=== PATIENT | female | born 1950 | race Caucasian/White ===

== ENCOUNTER → 2017-01-05 | Outpatient (CLI) | payer MEDICARE ==
--- NOTE | 2017-01-05 13:56 | MM ---
Reason for exam: follow-up at short interval from prior study. Last mammogram was performed 8 months ago. History: Patient is postmenopausal and has history of breast cancer at age 65. Family history of breast cancer in sister at age 60. Malignant MG pre op needle loc LT of the left breast, June 17, 2016. Malignant US biopsy breast VAD LT of the left breast, May 08, 2016. US discontinued breast core LT of the left breast, April 30, 2016. Physical Findings: Nurse did not find any significant physical abnormalities on exam. MG 3D Diag Mammo W/Cad LT CC and MLO view(s) were taken of the left breast. Prior study comparison: May 08, 2016, left breast MG diagnostic mammo LT wo CAD. April 01, 2016, left breast MG work up mamm w CAD LT. The breast tissue is heterogeneously dense. This may lower the sensitivity of mammography. Finding: Architectural distortion in the left breast consistent with previous surgery. Post radiation change, skin thickening. No significant changes in finding since May 08, 2016 and April 01, 2016. These results were verbally communicated with the patient and result sheet given to the patient on 01/05/17. ASSESSMENT: Benign, BI-RAD 2 RECOMMENDATION: Follow-up diagnostic mammogram of both breasts in 3 months.
== END | disposition home or self-care (01) ==
LOC: RADMAMWWP 12:51
PROVIDERS: ATTEND Surgery
DX: Z08 Encounter for follow-up examination after completed treatment for malignant neoplasm (principal); Z85.3 Personal history of malignant neoplasm of breast
CPT/HCPCS: G0206; G0279

== ENCOUNTER → 2018-03-17 | Outpatient (CLI) | payer MEDICARE ==
--- NOTE | 2018-03-17 14:16 | MM ---
Reason for exam: additional evaluation requested from prior study. Last mammogram was performed 1 year and 2 months ago. History: Patient is postmenopausal, has history of breast cancer at age 65, and history of other cancer. Family history of breast cancer in sister at age 60. Malignant MG pre op needle loc LT of the left breast, June 17, 2016. Malignant US biopsy breast VAD LT of the left breast, May 08, 2016. US discontinued breast core LT of the left breast, April 30, 2016. Physical Findings: Nurse did not find any significant physical abnormalities on exam. MG 3D Diag Mammo W/Cad ELVIRA Bilateral CC and MLO view(s) were taken. Prior study comparison: January 05, 2017, left breast MG 3d diag mammo w/cad LT. May 08, 2016, left breast MG diagnostic mammo LT wo CAD. The breast tissue is heterogeneously dense. This may lower the sensitivity of mammography. No suspicious abnormality. Post surgical change on the left breast. These results were verbally communicated with the patient and result sheet given to the patient on 03/17/18. ASSESSMENT: Benign, BI-RAD 2 RECOMMENDATION: Follow-up diagnostic mammogram of both breasts in 1 year.
== END | disposition home or self-care (01) ==
LOC: RADMAMWWP 13:07
PROVIDERS: ATTEND Internal Medicine Hematology & Oncology
DX: Z08 Encounter for follow-up examination after completed treatment for malignant neoplasm (principal); Z85.3 Personal history of malignant neoplasm of breast
CPT/HCPCS: 77066; G0279

== ENCOUNTER → 2018-04-08 | Outpatient (CLI) | payer MEDICARE ==
--- NOTE | 2018-04-15 15:17 | HM ---
HOLTER MONITOR REPORT DATE OF SERVICE: 04/08/2018 CLINICAL INFORMATION: The patient was monitored for 24 hours. The baseline rhythm appeared to be a sinus mechanism with a minimum heart rate of 50 beats per minute, maximum heart rate 112 beats per minute and average heart rate of 72 beats per minute. Ventricular ectopic events were presented during this 24-hour monitoring and presented as ventricular couplets, bigeminy, and trigeminy. There is no evidence of any nonsustained VT noted. Supraventricular ectopic events were not seen during this 24-hour monitoring. No evidence of sinus pause or sinus arrest. There was no diary of symptoms reported. CONCLUSION: 1. This is a 24 hour Holter monitor. 2. Sinus rhythm as a baseline mechanism. 3. Ventricular ectopic events presented as couplet, bigeminy, and trigeminy. No evidence of any nonsustained ventricular tachycardia seen. 4. No evidence of any supraventricular ectopic events. 5. There is no evidence of any sustained tachy- or bradyarrhythmia. 6. No evidence of sinus pause or sinus arrest. 7. There is no diary of symptoms attached to this study. MMODL / IJN: [id number] /
== END | disposition home or self-care (01) ==
LOC: RADECHMAIN 12:17
PROVIDERS: ATTEND Family Medicine
DX: R00.8 Other abnormalities of heart beat (principal)
CPT/HCPCS: 93225; 93226

== ENCOUNTER → 2018-09-02 | Outpatient (CLI) | payer MEDICARE ==
--- NOTE | 2018-09-02 15:03 | BD ---
EXAMINATION TYPE: Axial Bone Density DATE OF EXAM: 09/02/2018 COMPARISON: 09.10.2016 CLINICAL HISTORY: 68 YR OLD FEMALE....ICD-10 CODE: M85.9 OSTEOPENIA, C50.412 BREAST CANCER Height: 59.2 Weight: 218 FRAX RISK QUESTIONS: Glucocorticoids (More than 3mos): YES (Ex: prednisone, prednisolone, methylprednisolone, dexamethasone, and hydrocortisone). RISK FACTORS HISTORY OF: NO FRACTURES SINCE AGE 48 YRS OLD Postmenopausal woman: AT AGE 66, MEDICATIONS: Prednisone or other steroids: ON AND OFF FOR ASTHMA BOTH PRODUCTS How Long: YRS Additional Medications: ARIMIDEX, BP MEDS, CITALOPRAM , XANAX, HX OF RADIATION, VIT D3 AND CALCIUM, P EPCID, MULTIVITAMINS. Additional History: HYPERTENSION, PANIC ATTACKS, HX OF LT BREAST CANCER, LUMPECTOMY, EXAM MEASUREMENTS: Bone mineral densitometry was performed using the [employer] System. Bone mineral density as measured about the Lumbar spine is: ----- L1-L4(G/cm2): 1.333 T Score Values are as follows: ----- L1: 1.5 ----- L2: 0.9 ----- L3: 1.3 ----- L4: 1.2 ----- L1-L4: 1.3 Bone mineral density has: Increased 2.2% since study of: 09.10.2016 Bone mineral density about the R hip (g/cm2): 0.928 Bone mineral density about the L hip (g/cm2): 0.914 T Score values are as follows: -----R Neck: -1.6 -----L Neck: -1.7 -----R Total: -0.6 -----L Total: -0.7 Bone mineral density has: Decreased -8.5% since study of: 09.10.2016 FRAX%s: THERE IS A 14.0% CHANCE FOR A MAJOR OSTEOPOROTIC FX AND A 2.4% FOR HIP FX....PROBABILITY O F FX IN 10 YRS TIME IMPRESSION: Osteopenia (T Score between -2.5 and -1) at the femoral neck level in both hips. There is slightly increased risk of fracture and the patient may be considered for treatment. Re-Screen 2-5 years. NOTE: T-SCORE=SD OF THE YOUNG ADULT MEAN.
== END | disposition home or self-care (01) ==
LOC: RADBDWWP 14:02
PROVIDERS: ATTEND Internal Medicine Hematology & Oncology
DX: C50.412 Malignant neoplasm of upper-outer quadrant of left female breast (principal); M85.88 Other specified disorders of bone density and structure, other site; Z88.0 Allergy status to penicillin; Z88.1 Allergy status to other antibiotic agents
CPT/HCPCS: 77080

== ENCOUNTER → 2019-03-18 | Outpatient (CLI) | payer MEDICARE ==
--- NOTE | 2019-03-18 13:22 | MM ---
Reason for exam: additional evaluation requested from prior study. Last mammogram was performed 1 year ago. History: Patient is postmenopausal, has history of breast cancer at age 65, and history of other cancer. Family history of breast cancer in sister at age 60. Malignant MG pre op needle loc LT of the left breast, June 17, 2016. Malignant US biopsy breast VAD LT of the left breast, May 08, 2016. US discontinued breast core LT of the left breast, April 30, 2016. Taking antineoplastic for 3 years beginning at age 65. Physical Findings: Nurse did not find any significant physical abnormalities on exam. MG 3D Diag Mammo W/Cad ELVIRA Bilateral CC and MLO view(s) were taken. Prior study comparison: March 17, 2018, bilateral MG 3d diag mammo w/cad ELVIRA. January 05, 2017, left breast MG 3d diag mammo w/cad LT. The breast tissue is heterogeneously dense. This may lower the sensitivity of mammography. Asymmetric breast tissue greater in the left breast. Post surgical changes in the left breast. No significant new findings when compared with previous films. These results were verbally communicated with the patient and result sheet given to the patient on 03/18/19. ASSESSMENT: Benign, BI-RAD 2 RECOMMENDATION: Follow-up diagnostic mammogram of both breasts in 1 year.
== END | disposition home or self-care (01) ==
LOC: RADMAMWWP 12:21
PROVIDERS: ATTEND Internal Medicine Hematology & Oncology
DX: Z08 Encounter for follow-up examination after completed treatment for malignant neoplasm (principal); Z85.3 Personal history of malignant neoplasm of breast
CPT/HCPCS: 77066; G0279; 77062

== ENCOUNTER → 2019-04-28 | Outpatient (CLI) | payer MEDICARE ==
[2019-04-28 14:24] VITALS: BP 115/76; PULSE 86; RESP 18; TEMP 98.8; BMI 43.3
--- NOTE | 2019-04-28 14:48 | P.GSHP ---
History of Present Illness H&P Date: 04/28/19 Chief Complaint: history of left breast cancer Brianna is a 68-year-old white female who is status post left breast lumpectomy and sentinel node biopsy in May 2016. The tumor size at that time was 9 mm, and her sentinel lymph nodes were negative for any metastatic disease. The patient was treated with Nora radiation therapy. She is on Arimodex and is followed by medical oncology. The patient complains of some fullness in the upper outer quadrant of the left breast. She states that it is developed over time. This is not painful. She states it is not soft and this become progressively firm this time. The patient had a bilateral mammogram was recently and [id number]. This was felt to be benign by related to asymmetric tissue was noted and surgical changes in the left breast. The patient has no complaints of any recent trauma to her breast. She states that the Nora was removed he did have a difficult time removing the Nora Device. The patient has no history of any infection in her breast. Family history: 1. Father: Lymphoma 2. sister: breast Hormonal History: menarche: 11 , first at 17, breast fed: no menopause: patient on arimidex, was still having periods at time of lumpectomy BCP: 2 years hormones: none Past surgical history: 1. Left breast lumpectomy and sentinel node biopsy 2. Gallbladder 3. 7 endoscopic procedures/ EGD and colonoscopy 4. Bone spur left foot 5. Left knee surgery 6. 7. Tonsillectomy Medical history: 1. Arthritis Social History: smoke: none alcohol: none drugs: none - Constitutional Constitutional: Reports sweats - EENT Comment: wears glasses Eyes: denies blurred vision, denies pain Ears: left: decreased hearing, deny: tinnitus (meniers disease) Ears, nose, mouth and throat: Denies headache, Denies sore throat - Breasts Breasts: bilateral: as per HPI - Cardiovascular Cardiovascular: Denies chest pain, Denies shortness of breath - Respiratory Comment: ? asthma - Gastrointestinal Comment: Has colonoscopies on a regular basis Gastrointestinal: Reports constipation, Reports diarrhea - Genitourinary (Female) Genitourinary: Denies dysuria, Denies hematuria - Menstruation Comment: Had menstrual periods until started Arimidex, have recommended she follow up with gynecology - Musculoskeletal Comment: arthritis - Integumentary Comment: psoriasis - Neurological Comment: Numbness under her left arm Neurological: Denies numbness, Denies weakness - Psychiatric Psychiatric: Reports anxiety, Denies depression - Endocrine Endocrine: Denies fatigue, Denies weight change - Hematologic/Lymphatic Comment: none - Allergic/Immunologic Allergic/Immunologic: Reports as per HPI, Reports seasonal allergies Past Medical History Past Medical History: Cancer, GERD/Reflux, Hypertension, Osteoarthritis (OA), Skin Disorder, Sleep Apnea/CPAP/BIPAP Additional Past Medical History / Comment(s): heart murmer, irregular heartbeat, migraines, no cpap used, hiatal hernia, psoriaisis, hx skin cancer, hx anemia, HX BREAST CA History of Any Multi-Drug Resistant Organisms: None Reported Past Surgical History: Breast Surgery, Section, Cholecystectomy, Orthopedic Surgery, Tonsillectomy Additional Past Surgical History / Comment(s): LEFT KNEE arthroscopy, D & C X 3, cyst removed from rt lower leg, bone spur removed from left ankle, LT BREAST LUMPECTOMY WITH SENTINEL NODE BIOPSY Past Anesthesia/Blood Transfusion Reactions: Motion Sickness Additional Past Anesthesia/Blood Transfusion Reaction / Comment(s): DAUGHTER - PONV Past Psychological History: Anxiety, Depression Smoking Status: Never smoker Past Alcohol Use History: Rare Past Drug Use History: None Reported - Past Family History Mother Family Medical History: Cancer Father Family Medical History: Cancer Additional Family Medical History / Comment(s): LYMPHOMA Sister(s) Family Medical History: Cancer Additional Family Medical History / Comment(s): BREAST CA Medications and Allergies Home Medications Medication Instructions Recorded Confirmed Type Benazepril HCl 20 mg PO DAILY 08/03/14 04/28/19 History Cholecalciferol [Vitamin D3] 2,000 unit PO DAILY 08/03/14 04/28/19 History Fluticasone Propionate [Flonase] 2 spray EA NOSTRIL DAILY 08/03/14 04/28/19 History Montelukast [Singulair] 10 mg PO HS 08/03/14 04/28/19 History Citalopram Hydrobromide 40 mg PO DAILY 06/11/16 04/28/19 History [Citalopram HBr] Lansoprazole [Prevacid] 15 mg PO AC-LUNCH 06/11/16 04/28/19 History Triamterene/Hydrochlorothiazid 1 cap PO 1200 06/11/16 04/28/19 History [Dyazide 37.5-25 Capsule] Vitamin B Complex 1 each PO DAILY 06/11/16 04/28/19 History Anastrozole [Arimidex] 1 mg PO DAILY 04/28/19 04/28/19 History Calcium Carbonate [Calcium] 600 mg PO 04/28/19 History Allergies Allergy/AdvReac Type Severity Reaction Status Date / Time ciprofloxacin [From Cipro] Allergy Unknown Rapid Verified 04/28/19 14:09 Heart Rate ciprofloxacin HCl Allergy Unknown Rapid Verified 04/28/19 14:09 [From Cipro] Heart Rate Penicillins Allergy Unknown Swelling Verified 04/28/19 14:09 codeine phosphate Allergy Abdominal Verified 04/28/19 14:09 [From Tylenol-Codeine] Pain Surgical - Exam Vital Signs Temp Pulse Resp BP Pulse Ox 98.8 F 86 18 115/76 96 04/28/19 14:19 04/28/19 14:19 04/28/19 14:19 04/28/19 14:19 04/28/19 14:19 BMI 43.3 - General obese - Eyes normal ocular movement - ENT normal pinna, no hearing loss - Neck no masses, trachea midline - Respiratory normal expansion, normal respiratory effort, clear to auscultation - Cardiovascular Rhythm: regular Heart Sounds: normal: S1, S2 - Abdomen Abdomen: soft, non tender, no guarding, no rigid, no rebound - Integumentary psoriasis - Neurologic no disoriented, no combative - Psychiatric oriented to time, oriented to person, oriented to place, speech is normal, memory intact breast exam: right breast: Accumulated. Multi-positional exam no dominant masses or nodules of concern fibrocystic changes Right axilla: No adenopathy of concern Left breast: Distortion related to prior lumpectomy, firm nodule upper outer quadrant area approximately 4 cm x 4 cm freely mobile Left axilla: No adenopathy of concern Results Mammogram results reviewed from [id number] Assessment and Plan Assessment: Impression: 1. Fibrocystic breast changes 2. mass UOQ left breast 3. Prior left breast cancer 4. Patient presently arimodex 5. morbid obesity 6. psoriasis 7. prior history of left breast cancer Have recommended core biopsy of the left breast. Patient understands risk and benefits of the procedure. Plan: 1. core biopsy of the left breast 2. continue Arimodex/ follow with Dr. O[place]iedo 3. medical managment of medical problems cc: Dr. Minh Carolina
== END ==
LOC: WWCWWP 13:52
PROVIDERS: ATTEND Surgery
DX: Z53.9 Procedure and treatment not carried out, unspecified reason (principal)

== ENCOUNTER → 2019-05-12 | Outpatient (CLI) | payer MEDICARE ==
[2019-05-12 12:18] VITALS: BP 124/84; PULSE 70; RESP 18; TEMP 98.5; BMI 43.3
--- NOTE | 2019-05-12 12:40 | P.PCN ---
Date of Procedure: 05/12/19 Preoperative Diagnosis: fullness left breast at prior lumpectomy site Postoperative Diagnosis: same Procedure(s) Performed: core biopsy left breast at prior lumpectomy site Anesthesia: local Surgeon: Oralia Lombardo Pathology: other (breast tissue) Condition: stable Disposition: same day Indications for Procedure: firmness left breast at prior lumpectomy site Description of Procedure: The patient is a 68-year-old white female who is status post left lumpectomy with Nora radiation administration. She has a palpable mass in the upper outer quadrant of the left breast at the site of the lumpectomy. After discussion of prior biopsy this site has been recommended. She understands risks and benefits and wishes to proceed. The patient was placed on the procedure table. The area of the breast was prepped using Betadine. 1% lidocaine was used to anesthetize the skin. A small incision was made in the skin. An 18 gauge [id number] disposable core biopsy needle was introduced into the lesion. Three samples were obtained. The specimens were prepared and sent to pathology. The patient tolerated the procedure in stable condition. The patient will follow next week for results of the biopsy.
== END | disposition home or self-care (01) ==
LOC: WWCWWP 11:59
PROVIDERS: ATTEND Surgery
DX: N64.1 Fat necrosis of breast (principal); N60.32 Fibrosclerosis of left breast
CPT/HCPCS: 88305; 88341; 88342

== ENCOUNTER → 2019-05-19 | Outpatient (CLI) | payer MEDICARE ==
[2019-05-19 12:25] VITALS: BP 118/73; PULSE 82; RESP 18; TEMP 99; BMI 43.3
--- NOTE | 2019-05-19 12:31 | P.PN ---
Progress Note - Text Progress Note Date: 05/19/19 Patient returns today for results of core biopsy area of fullness in the left breast upper outer quadrant region. Pathology was benign revealing fat necrosis no evidence of malignancy. Patient has no complaints related to the core biopsy. Physical exam: Heart: S1-S2, systolic ejection murmur Lungs: Decreased breath sounds at the bases Left breast: Biopsy site clean and dry no evidence of infection, persistent fullness in the upper outer quadrant region related to prior lumpectomy Plan: Repeat physician exam 6 months Follow-up sooner any questions of concern CC: Dr. Minh Carolina
== END ==
LOC: WWCWWP 12:00
PROVIDERS: ATTEND Surgery
DX: Z53.9 Procedure and treatment not carried out, unspecified reason (principal)

== ENCOUNTER → 2021-05-09 | Outpatient (CLI) | payer MEDICARE ==
--- NOTE | 2021-05-09 11:11 | USB ---
EXAMINATION TYPE: US breast limited LT DATE OF EXAM: 05/09/2021 COMPARISON: Mammogram same date CLINICAL HISTORY: R92.8 ABN MAMMO. Findings: Targeted left breast ultrasound was performed from 1-3 o'clock in the region of patient's palpable ab normality. Scarring is again noted at 2:00. The retroareolar region and axillary tail were also scann ed with ultrasound without sonographic evidence for malignancy. IMPRESSION: Scarring corresponds to the patient's area of palpable abnormality. Clinical follow-up is recommended . Negative mammogram and/or ultrasound report should not biopsy of a clinically suspicious palpable les ion. BI-RADS 2, benign. Bilateral diagnostic mammogram is recommended in 12 months.
--- NOTE | 2021-05-10 09:07 | MM ---
Reason for exam: additional evaluation requested from prior study. Last mammogram was performed 2 years and 2 months ago. History: Patient is postmenopausal, has history of breast cancer at age 65, and history of other cancer. Family history of breast cancer in sister at age 60. Excisional biopsy of the left breast, May 12, 2019. Malignant MG pre op needle loc LT of the left breast, June 17, 2016. Malignant US biopsy breast VAD LT of the left breast, May 08, 2016. US discontinued breast core LT of the left breast, April 30, 2016. Lumpectomy of the left breast, 2016. Took hormonal contraceptives for 5 years. Taking antineoplastic for 5 years beginning at age 65. Physical Findings: Nurse Summary: hard 3cm nodule in the left breast at 1 o'clock (nurse TM). MG 3D Diag Mammo W/Cad ELVIRA Bilateral CC and MLO view(s) were taken. Prior study comparison: March 18, 2019, bilateral MG 3d diag mammo w/cad ELVIRA. March 17, 2018, bilateral MG 3d diag mammo w/cad ELVIRA. There are scattered fibroglandular densities. Post operative change left breast consistent with fat necrosis, corresponds with palpable. These results were verbally communicated with the patient and result sheet given to the patient on 05/09/21. ASSESSMENT: Incomplete: need additional imaging evaluation, BI-RAD 0 RECOMMENDATION: Ultrasound of the left breast. (for palpable abnormality)
== END | disposition home or self-care (01) ==
LOC: RADUSWWP 09:44
PROVIDERS: ATTEND Nurse Practitioner
DX: R92.8 Other abnormal and inconclusive findings on diagnostic imaging of breast (principal); Z78.0 Asymptomatic menopausal state; Z80.3 Family history of malignant neoplasm of breast; Z85.3 Personal history of malignant neoplasm of breast
CPT/HCPCS: 77066; 76642; G0279; 77062

== ENCOUNTER → 2021-05-09 | Outpatient (CLI) | payer MEDICARE ==
--- NOTE | 2021-05-09 15:50 | BD ---
EXAMINATION TYPE: Axial Bone Density PATIENT IN WHEEL CHAIR DATE OF EXAM: 05/09/2021 COMPARISON: 09.02.2018 CLINICAL HISTORY: 70 YR OLD FEMALE......ICD-10 CODE: Z78.0 POST MENOPAUSAL Height: 59 Weight: 226 FRAX RISK QUESTIONS: Glucocorticoids (More than 3mos): YES (Ex: prednisone, prednisolone, methylprednisolone, dexamethasone, and hydrocortisone). RISK FACTORS HISTORY OF: Postmenopausal woman: YES, 56 Lost more than 2 inches in height since high school: YES Frequent falls: UNSTEADY, IN WHEELCHAIR, USES CANE OR WALKER ALSO Poor Health: YES Hyperparathyroidism: NO Adrenal Insufficiency: NO MEDICATIONS: Prednisone or other steroids: YES, ON AND OFF FOR YRS, ASTHMA AND PAIN Additional Medications: HX OF RADIATION, BP MEDS, ARIMIDEX, CITALOPRAM, XANAX, PEPCID, MULTIVITAMINS, CALCIUM, VIT D3 Additional History: HX OF LT BREAST CANCER, LUMPECTOMY, PANIC ATTACKS, HYPERTENSION, OSTEOARTHRITIS, EXAM MEASUREMENTS: Bone mineral densitometry was performed using the [employer] System. Bone mineral density as measured about the Lumbar spine is: ----- L1-L4(G/cm2): 1.201 T Score Values are as follows: ----- L1: 0.1 ----- L2: -0.4 ----- L3: 0.2 ----- L4: 0.4 ----- L1-L4: 0.2 Bone mineral density has: Decreased -9.4% since study of: 09.02.2018 Bone mineral density about the R hip (g/cm2): 0.828 Bone mineral density about the L hip (g/cm2): 0.807 T Score values are as follows: -----R Neck: -1.8 -----L Neck: -2.3 -----R Total: -1.4 -----L Total: -1.6 Bone mineral density has: Decreased -11.2% since study of: 09.02.2018 FRAX%s: THERE IS A 18.8% CHANCE FOR A MAJOR OSTEOPOROTIC FX AND A 5.0% FOR HIP.....PROBABILITY FOR FX IN 10 YRS TIME IMPRESSION: Osteopenia. NOTE: T-SCORE=SD OF THE YOUNG ADULT MEAN.
== END | disposition home or self-care (01) ==
LOC: RADBDWWP 11:18
PROVIDERS: ATTEND Family Medicine
DX: Z13.820 Encounter for screening for osteoporosis (principal); M85.89 Other specified disorders of bone density and structure, multiple sites; Z78.0 Asymptomatic menopausal state
CPT/HCPCS: 77080

== ENCOUNTER → 2023-08-05 | Day surgery (SDC) | payer MEDICARE ==
--- NOTE | 2023-08-11 10:54 | MM ---
Reason for Exam: Post Procedure Mammogram. Last screening mammogram was performed 2 month(s) ago. Patient History: Menarche at age 11. First Full-Term at age 17. Postmenopausal. Other cancer. Breast cancer, left, age 65. Previous chest radiation therapy at age 65. Patient used Hormonal Contraceptives for 5 years. 05/12/2019, Excisional Biopsy on the Left side. 2015, Lumpectomy on the Left side. 06/17/2016, Malignant Core Biopsy on the left side. 05/08/2016, Malignant Core Biopsy on the left side. 04/30/2016, US discontinued breast core LT on the left side. Sister had breast cancer, age 60. Prior Study Comparison: 03/18/2019 Bilateral Diagnostic Mammogram, [facility]. 05/09/2021 Bilateral Diagnostic Mammogram, [facility]. 06/16/2023 Bilateral MG 3D diag mammo w/cad ELVIRA, [facility]. Tissue Density: Right: There are scattered fibroglandular densities. Pathology Description: Location: 11 o'clock. Marker Left Behind. Needle Type: Mammotome Cores: 6 Skin Nicks: 1 The procedure of ultrasound guided core biopsy was explained to the patient. Benefits, alternatives, and risks were discussed. An informed consent was then obtained. A timeout was performed. The patient was placed in supine positioning for imaging and for the procedure. The overlying skin was prepped and draped in usual sterile fashion. Lidocaine was used as anesthetic into the skin and subcutaneous tissue up to area of concern in the right breast. A small skin felisa was made with surgical scalpel. Under ultrasound guidance, a 12-gauge vacuum assisted biopsy gun device was used to obtain 6 core samples. A biopsy clip was left in lesion. Hydromark core butterfly marker was placed. The patient tolerated the procedure well without any immediate complication. Discharge instructions were discussed with the patient. The patient was kept in the radiology department for short stay after the procedure and then discharged home in stable condition. Postprocedure mammogram: The patient was transferred to mammography for physician ordered post procedure mammogram for clip placement verification. Impression: Successful ultrasound guided core biopsy of area of concern in the right breast, full pathology results to follow. Recommendations: 1. Recommendations are pending pathology results. Pathology Results: Result: Malignant, Invasive ductal carcinoma. RIGHT BREAST, ELEVEN O'CLOCK, ULTRASOUND GUIDED NEEDLE CORE BIOPSY: Invasive moderately differentiated ductal carcinoma (Grade 2). See Surgical Pathology Cancer Case Summary and Comment. Overall Assessment: Malignant Assessment: MG diagnostic mammo RT wo CAD - Right: Known biopsy proven malignancy, BI-RAD 6. Management: Surgical Consultation of the right breast. Electronically signed and approved by: Hardy Moses D.O. Radiologis
== END ==
LOC: RADUSWWP 07:49
PROVIDERS: ATTEND Internal Medicine Hematology & Oncology
DX: C50.511 Malignant neoplasm of lower-outer quadrant of right female breast (principal); Z78.0 Asymptomatic menopausal state; Z92.3 Personal history of irradiation; Z80.3 Family history of malignant neoplasm of breast
CPT/HCPCS: 88305; 88342; 88341; 77065; 19083; A4648

== ENCOUNTER 2023-09-22 08:42 | Day surgery (SDC) | payer MEDICARE ==
--- NOTE | 2023-09-16 17:29 | P.PN ---
Subjective Progress Note Date: 09/16/23 Subjective Principal diagnosis: left breast cancer 2015, right breast cancer 2022 history of left breast cancer Brianna is a 73-year-old white female who is status post left breast lumpectomy and sentinel node biopsy in May 2016. The tumor size at that time was 9 mm, and her sentinel lymph nodes were negative for any metastatic disease. The patient was treated with Nora radiation therapy. She had been on Arimodex and is followed by medical oncology. Her bone density had decreased. Bilateral mammogram on 06-16-23 spiculated mass right breast, ultrasound 06-16-23 confirmed the mass, and core biopsy on 08-05-23 IDC grade 2, ER+Pr+Her2-. She tolerated the biopsy without difficulty. Patient states she has felt fullness near the area of the tumor for the last several years. genetic testing done pending Family history: 1. Father: Lymphoma 2. sister: breast 3. daughter of liver cancer Hormonal History: menarche: 11 , first at 17, breast fed: no menopause: patient on arimidex, was still having periods at time of lumpectomy BCP: 2 years hormones: none Past surgical history: 1. Left breast lumpectomy and sentinel node biopsy 2. Gallbladder 3. 7 endoscopic procedures/ EGD and colonoscopy 4. Bone spur left foot 5. Left knee surgery 6. 7. Tonsillectomy Medical history: 1. Arthritis Social History: smoke: none alcohol: none drugs: none - Constitutional Constitutional: Reports sweats - EENT Comment: wears glasses Eyes: denies blurred vision, denies pain Ears: left: decreased hearing, deny: tinnitus (meniers disease) Ears, nose, mouth and throat: Denies headache, Denies sore throat - Breasts Breasts: bilateral: as per HPI - Cardiovascular Cardiovascular: Denies chest pain, Denies shortness of breath - Respiratory Comment: ? asthma - Gastrointestinal Comment: Has colonoscopies on a regular basis Gastrointestinal: Reports constipation, Reports diarrhea - Genitourinary (Female) Genitourinary: Denies dysuria, Denies hematuria - Menstruation Comment: Had menstrual periods until started Arimidex, have recommended she follow up with gynecology - Musculoskeletal Comment: arthritis - Integumentary Comment: psoriasis - Neurological Comment: Numbness under her left arm Neurological: Denies numbness, Denies weakness - Psychiatric Psychiatric: Reports anxiety, Denies depression - Endocrine Endocrine: Denies fatigue, Denies weight change - Hematologic/Lymphatic Comment: none - Allergic/Immunologic Allergic/Immunologic: Reports as per HPI, Reports seasonal allergies Past Medical History Past Medical History: Cancer, GERD/Reflux, Hypertension, Osteoarthritis (OA), Skin Disorder, Sleep Apnea/CPAP/BIPAP Additional Past Medical History / Comment(s): heart murmer, irregular heartbeat, migraines, no cpap used, hiatal hernia, psoriaisis, hx skin cancer, hx anemia, HX BREAST CA History of Any Multi-Drug Resistant Organisms: None Reported Past Surgical History: Breast Surgery, Section, Cholecystectomy, Orthopedic Surgery, Tonsillectomy Additional Past Surgical History / Comment(s): LEFT KNEE arthroscopy, D & C X 3, cyst removed from rt lower leg, bone spur removed from left ankle, LT BREAST LUMPECTOMY WITH SENTINEL NODE BIOPSY Past Anesthesia/Blood Transfusion Reactions: Motion Sickness Additional Past Anesthesia/Blood Transfusion Reaction / Comment(s): DAUGHTER - PONV Past Psychological History: Anxiety, Depression Smoking Status: Never smoker Past Alcohol Use History: Rare Past Drug Use History: None Reported - Past Family History Mother Family Medical History: Cancer Father Family Medical History: Cancer Additional Family Medical History / Comment(s): LYMPHOMA Sister(s) Family Medical History: Cancer Additional Family Medical History / Comment(s): BREAST CA Medications and Allergies Home Medications Medication Instructions Recorded Confirmed Type Benazepril HCl 20 mg PO DAILY 08/03/14 04/28/19 History Cholecalciferol [Vitamin D3] 2,000 unit PO DAILY 08/03/14 04/28/19 History Fluticasone Propionate [Flonase] 2 spray EA NOSTRIL DAILY 08/03/14 04/28/19 History Montelukast [Singulair] 10 mg PO HS 08/03/14 04/28/19 History Citalopram Hydrobromide 40 mg PO DAILY 06/11/16 04/28/19 History [Citalopram HBr] Lansoprazole [Prevacid] 15 mg PO AC-LUNCH 06/11/16 04/28/19 History Triamterene/Hydrochlorothiazid 1 cap PO 1200 06/11/16 04/28/19 History [Dyazide 37.5-25 Capsule] Vitamin B Complex 1 each PO DAILY 06/11/16 04/28/19 History Anastrozole [Arimidex] 1 mg PO DAILY 04/28/19 04/28/19 History Calcium Carbonate [Calcium] 600 mg PO 04/28/19 History Allergies Allergy/AdvReac Type Severity Reaction Status Date / Time ciprofloxacin [From Cipro] Allergy Unknown Rapid Verified 04/28/19 14:09 Heart Rate ciprofloxacin HCl Allergy Unknown Rapid Verified 04/28/19 14:09 [From Cipro] Heart Rate Penicillins Allergy Unknown Swelling Verified 04/28/19 14:09 codeine phosphate Allergy Abdominal Verified 04/28/19 14:09 [From Tylenol-Codeine] Pain Objective - Constitutional General appearance: Present: cooperative - EENT Eyes: Present: EOMI ENT: Present: hearing grossly normal - Neck Neck: Present: normal ROM - Respiratory Respiratory: bilateral: CTA - Cardiovascular Heart sounds: normal: S1, S2 - Integumentary Integumentary: Present: normal turgor - Musculoskeletal Musculoskeletal: Present: gait normal - Psychiatric Psychiatric: Present: A&O x's 3, appropriate affect, intact judgment & insight - Additional findings Additional findings: breast exam: BRA: large stretch bra Inspection: Postsurgical and radiation changes left breast, ecchymosis right breast at biopsy site Palpation: right breast: Multi-positional exam approximately 2 cm area of firmness in the periareolar region at 12:00, no other dominant masses or nodules of concern Right axilla: No adenopathy of concern Left breast: Distortion related to prior lumpectomy, firm nodule upper outer quadrant no other dominant masses or nodules of concern Left axilla: No adenopathy of concern Assessment and Plan Assessment: mpression: 1. Fibrocystic breast changes 2. right breast ultrasound core biopsy 08-05-23 invasive ductal cancer 3. Prior left breast cancer 4. Patient presently arimodex 5. morbid obesity 6. psoriasis 7. prior history of left breast cancer 8. decreased hearing left ear Plan: 1. presentation of case at tumor board: done 2. Right breast central lumpectomy with removal of nipple aerolar complex, right sentinel node injection, right sentinel node biopsy, possible right axillary node dissection, possible onco-plastic tissue transfer 3. medical management of medical problems 4. medical clearance Risks and benefits of the procedure discussed with the patient. Risks include but are not limited to bleeding, infection, reaction to the anesthetic. The patient understands that if she were to have positive margin she would have to have reexcision of the lumpectomy site. Additionally studies have demonstrated that there may be no benefit to sentinel biopsy over the age of 75 the patient would like to have a sentinel node biopsy performed. Risk of sentinel node biopsy include but are not limited to bleeding, infection, reaction to the anesthetic. There is a possibility of decreased sensation to the upper arm as well as lymphedema. There is a possibility of having to scapula. cc: Dr. Minh Carolina
[~2023-09-22 08:42] MED LIST: HEPARIN SODIUM,PORCINE/PF 5,000 UNIT/0.5 ML SYRINGE SQ PRN
[2023-09-22] MEDS ORDERED: ONDANSETRON 4 MG/2 ML VIAL IVP ONE (08:54)
[2023-09-22] MEDS ORDERED: HYDROmorphone 0.5 MG/0.5 ML SYRINGE IVP PRN (08:54)
[2023-09-22] MEDS ORDERED: MIDAZOLAM 2 MG/2 ML VIAL IV PRN (08:54)
[2023-09-22] MEDS ORDERED: DEXAMETHASONE SOD PHOSPHATE 4 MG/ML 1 ML VIAL IV ONE (08:54)
[2023-09-22] MEDS ORDERED: LACTATED RINGERS 1,000 ML IV SCH (08:54)
[2023-09-22] MEDS ORDERED: LIDOCAINE 1% (10MG/ML) FOR IV START INTRADERMA PRN (08:54)
[2023-09-22] MEDS ORDERED: LACTATED RINGERS 1,000 ML IV ONE ×2 (09:00→13:04)
[2023-09-22] MEDS ORDERED: LIDOCAINE 1% INJ 10MG/ML (20 ML MDV) SQ ONE (09:42)
--- NOTE | 2023-09-22 10:44 | NM ---
EXAMINATION TYPE: NM sentinel node injection DATE OF EXAM: 09/22/2023 COMPARISON: NONE INDICATION: Abnormal mammogram. Informed consent was obtained. A timeout was performed. The area around the right nipple was cleansed with alcohol. In a single dose, a total of 502 uCi Te chnetium 99m Tilmanocept was injected. The patient tolerated the procedure very well. IMPRESSION: 1. Successful injection for sentinel node evaluation.
--- NOTE | 2023-09-22 11:11 | P.NAPBC ---
NAPBC Queries - NAPBC Queries Was patient's case review presented at [facility] tumor board? If no, comment.: Yes Was patient's pathology reviewed at [facility]? If no, comment.: Yes Was breast conservation surgery offered? If no, comment.: Yes Was sentinel node biopsy offered? If no, comment.: Yes Was diagnosis confirmed by percutaneous core biopsy? If no, comment.: Yes Is patient mastectomy patient?: No Was a preop referral to reconstructive surgeon offered?: No Clinical Stage: right breast [id number]+Pr+Her2-G2 invasive ductal cancer 2022; left breast stage 1 invasive ductal cancer 2015
[2023-09-22] MEDS ORDERED: NALOXONE 0.4 MG/ML 1 ML VIAL ONE (11:47)
[2023-09-22] MEDS ORDERED: SUCCINYLCHOLINE CHLORIDE 200 MG/10 ML VIAL IV ONE (11:47)
[2023-09-22] MEDS ORDERED: MIDAZOLAM 2 MG/2 ML VIAL ONE (11:47)
[2023-09-22] MEDS ORDERED: PROPOFOL 10 MG/ML 20 ML VIAL IV ONE (11:47)
[2023-09-22] MEDS ORDERED: fentaNYL (PF) 50 MCG/ML 2 ML AMP ONE (11:47)
[2023-09-22] MEDS ORDERED: PHENYLEPHRINE-0.9% NACL SYG 1,000 MCG/10 ML SYRINGE ONE (11:47)
[2023-09-22] MEDS ORDERED: LIDOCAINE 1% INJ 10MG/ML (20 ML MDV) ONE (11:47)
[2023-09-22] MEDS ORDERED: HYDROmorphone (PF) 1 MG/ML ONE (11:47)
[2023-09-22] MEDS ORDERED: METHYLENE BLUE 50 MG/10 ML AMPUL MISCELLANE ONE (12:18)
--- NOTE | 2023-09-22 13:50 | P.OP ---
Date of Procedure: 09/22/23 Preoperative Diagnosis: Right breast invasive ductal carcinoma Postoperative Diagnosis: Same Procedure(s) Performed: Right breast needle localization central lumpectomy, sentinel node injection with methylene blue, sentinel node biopsy, onco- plastic tissue transfer 64 cm Anesthesia: BROOKEA Surgeon: Oralia Lombardo Estimated Blood Loss (ml): 15 IV fluids (ml): 1,000 Pathology: other (Breast tissue, sentinel node biopsy) Condition: stable Disposition: same day Indications for Procedure: Right breast invasive ductal carcinoma Operative Findings: Fibrofatty breast tissue/breast cancer Description of Procedure: The patient is a 73-year-old white female diagnosed with a right breast invasive ductal carcinoma. The location of the lesion was under the nipple areolar complex in proximity to the complex. Preoperatively we discussed this and she wished for a central lumpectomy to be performed. She was seen first in the radiology department where radiotracer was injected around the nipple areolar complex and needle localization of the area of concern was performed. The patient was brought to the operative suite. Following induction of anesthesia the neoprobe was used to interrogate the axilla. Minimal radioactivity was identified and therefore methylene blue 5 mL half percent was injected into the periareolar area. The breast was massaged for 5 minutes. Following this the right breast and axilla were prepped and draped in a sterile fashion. Using the neoprobe an area of minimal radioactivity was identified in the axilla. An incision was made at that site. Dissection was performed down through the skin and subcutaneous tissue to the axillary tissue. The axillary tissue was grasped and a blue lymph node was identified. This did appear to have some radioactive activity as well. This was excised using the Harmonic scalpel. Upon excision a small amount of blue tracer was identified. The 10 second count was 155. The 10 second background count was 20. No other palpable lymph nodes or adenopathy of concern was identified. The wound was well irrigated. The deep tissues were closed using 3-0 Vicryl suture. The subcutaneous tissue was closed using 3-0 Vicryl suture. The skin was closed using 4-0 Monocryl. Following this the area of the breast was approached. A circumareolar incision was made. The localizing needle was brought out through the incision. Dissection was performed circumferentially down onto the pectoralis muscle. The specimen was removed. Superiorly there appeared to be some proximity of the lesion to the superior margin and additional superior tissue was obtained. Anteriorly skin and nipple the nipple areolar complex was removed posteriorly dissection was onto the chest wall. All other margins appeared to be free of tumor. The specimen was painted for orientation. Radiograph of the specimen revealed the lesion and wire were removed. After we were assured that hemostasis was attained a superior pillar 8 x 2 cm was formed. An inferior periareolar 8 x 2 cm was formed. The specimen cavity was approximately 8 x 4 cm. Total tissue transfer was 64 cm. Titanium clips were placed. The wound was well irrigated. Surgicel in powder form was placed. The pillars were brought together using 3-0 Vicryl suture. The subcutaneous tissue was closed using 3-0 Vicryl suture. The subcutaneous tissue closure was with 4-0 Monocryl. Surgical glue was placed. The patient tolerated the procedure in stable condition. All instrument and sponge counts were correct at the end of the case. Patient will follow with Dr. Carolina next week.
[2023-09-22] MEDS ORDERED: ALBUTEROL NEBULIZED 1.25 MG/3 ML INHALATION ONE (14:15)
[2023-09-22 14:55] VITALS: TEMP 98.6
[2023-09-22 16:01] VITALS: BP 116/72
[2023-09-22 16:22] VITALS: PULSE 89; RESP 15
== END 2023-09-22 16:25 | disposition home or self-care (01) ==
LOC: OR 08:42
PROVIDERS: ATTEND Surgery
DX: C50.111 Malignant neoplasm of central portion of right female breast (principal); I10 Essential (primary) hypertension; E78.5 Hyperlipidemia, unspecified; J45.909 Unspecified asthma, uncomplicated; M19.90 Unspecified osteoarthritis, unspecified site; F41.9 Anxiety disorder, unspecified; F32.A Depression, unspecified; K44.9 Diaphragmatic hernia without obstruction or gangrene; Z79.899 Other long term (current) drug therapy; Z85.3 Personal history of malignant neoplasm of breast; Z88.1 Allergy status to other antibiotic agents; Z88.5 Allergy status to narcotic agent; Z80.3 Family history of malignant neoplasm of breast; Z88.0 Allergy status to penicillin; Z79.811 Long term (current) use of aromatase inhibitors
CPT/HCPCS: 77065; 76098; 19285; 38792; 38525; 19301; 14001; C1819; A9520; J2250; J0330; J1100; J2310; J0690; J2405; J2001; J3010; J1170; J2704; Q9968; J1644; J2371

== ENCOUNTER → 2023-10-01 | Outpatient (CLI) | payer MEDICARE ==
[2023-10-01 16:51] VITALS: BP 138/80; PULSE 78; RESP 18; TEMP 98.4
--- NOTE | 2023-10-01 16:52 | P.PN ---
Progress Note - Text Progress Note Date: 10/01/23 Brianna is a 73-year-old white female status post right central lumpectomy and sentinel node biopsy on 1030 123. Pathology revealed a 3 cm invasive ductal carcinoma with ductal carcinoma in situ. Margins were negative. One sentinel node was removed and this was negative for tumor. Examination: Lungs: Clear Heart: Regular rate and rhythm Incision: Clean and dry there is a small blister inferior to the incision in the medial aspect. There are some ecchymotic changes in the superior aspect of the chest wall A seroma is present After informed consent the seroma was aspirated. The area was prepped using alcohol. 18-gauge needle on a 60 mL syringe was inserted into the area of con cern in approximately 230 mL of fluid was removed. The patient tolerated the procedure in stable condition Impression: Patient doing well Plan: Follow-up radiation oncology Follow-up medical oncology Follow-up. In 1 week CC: Dr. Minh Carolina
== END ==
LOC: WWCWWP 16:32
PROVIDERS: ATTEND Surgery
DX: D05.11 Intraductal carcinoma in situ of right breast (principal); L76.82 Other postprocedural complications of skin and subcutaneous tissue; L76.34 Postprocedural seroma of skin and subcutaneous tissue following other procedure; Z88.1 Allergy status to other antibiotic agents; Z88.0 Allergy status to penicillin; Z88.5 Allergy status to narcotic agent

== ENCOUNTER → 2023-10-08 | Outpatient (CLI) | payer MEDICARE ==
--- NOTE | 2023-10-08 11:17 | P.PN ---
Progress Note - Text Progress Note Date: 10/08/23 Brianna is a 73-year-old white female status post right central lumpectomy and sentinel node biopsy on 1030 123. Pathology revealed a 3 cm invasive ductal carcinoma with ductal carcinoma in situ. Margins were negative. One sentinel node was removed and this was negative for tumor. Examination: Lungs: Clear Heart: Regular rate and rhythm Incision: Clean and dry there is a small blister inferior to the incision in the medial aspect. There are some ecchymotic changes in the superior aspect of the chest wall A seroma is present On 10-01-23 After informed consent the seroma was aspirated. The area was prepped using alcohol. 18-gauge needle on a 60 mL syringe was inserted into the area of concern in approximately 230 mL of fluid was removed. The patient tolerated the procedure in stable condition. on 10-08-23 the seroma was again noted The area was prepped using alcohol. An 18-gauge needle on a 20 mL syringe was inserted into the area of concern and 65 mL of fluid was removed. There appeared to be complete resolution of the seroma. The patient tolerated the procedure in stable condition. This was done following informed consent. Impression: Patient doing well Plan: Follow-up radiation oncology Follow-up medical oncology Follow-up in 4 months CC: Dr. Minh Carolina
== END ==
LOC: WWCWWP 10:23
PROVIDERS: ATTEND Surgery
DX: D05.11 Intraductal carcinoma in situ of right breast (principal); L76.82 Other postprocedural complications of skin and subcutaneous tissue; Z88.1 Allergy status to other antibiotic agents; Z88.0 Allergy status to penicillin; Z88.5 Allergy status to narcotic agent